=== PATIENT | male | born 1995 | race Caucasian/White ===

== ENCOUNTER 2018-09-07 16:14 | Emergency (ER) | payer OTHER, SELFPAY ==
[2018-09-07 16:17] VITALS: BP 174/91; PULSE 88; RESP 16; TEMP 37.9; O2SAT 96; BMI 34.7
--- NOTE | 2018-09-07 16:24 | ED.WOUNDLAC ---
HPI - Wound/Laceration <KATRINA Stark - Last Filed: 09/07/18 22:26> General Chief Complaint: Wound/Laceration Stated Complaint: laceratoin to left hand Time Seen by Provider: 09/07/18 16:24 Source: patient Mode of arrival: ambulatory Limitations: no limitations History of Present Illness HPI narrative: 22-year-old healthy male that is a nonsmoker here for complaint of laceration to his left palm that happened earlier this afternoon. He states that he was willing when he accidentally slipped with the knife causing a laceration to his left palm. He denies any other injuries. He states the knife was mostly clean. He states that his tetanus is up-to-date. No other concerns or complaints at this timeframe. Related Data Allergies Allergy/AdvReac Type Severity Reaction Status Date / Time No Known Drug Allergies Allergy Verified 09/07/18 16:20 Review of Systems <KATRINA Stark - Last Filed: 09/07/18 22:26> Constitutional Denies chills, Denies fever(s), Denies lethargy and Denies weakness Eyes Denies change in vision, Denies eye discharge, Denies irritation and Denies loss of vision ENT Ears, Nose, Mouth, and Throat: Denies change in voice, Denies neck pain and Denies sore throat Cardiovascular Denies chest pain, Denies irregular heart rhythm, Denies lightheadedness, Denies palpitations, Denies dyspnea, Denies dyspnea on exertion and Denies orthopnea Respiratory Denies cough, Denies dyspnea, Denies dyspnea on exertion and Denies wheezing Gastrointestinal Gastrointestinal: Denies abdominal pain, Denies change in bowel habits, Denies diarrhea, Denies nausea and Denies vomiting Genitourinary Denies hematuria, Denies flank pain, Denies urinary incontinence and Denies urinary urgency Musculoskeletal Denies neck pain Comments: Laceration left palm Integumentary/Breasts Denies pruritus, Denies erythema, Denies rash and Denies wounds Neurologic Denies confusion, Denies loss of vision and Denies weakness Psychiatric Denies anxiety, Denies confusion, Denies depression, Denies homicidal ideation and Denies suicidal ideation Endocrine Denies palpitations Hematologic/Lymphatic Denies easy bruising Allergic/Immunologic Denies wheezing Exam <KATRINA Stark - Last Filed: 09/07/18 22:26> Initial Vital Signs Initial Vital Signs: Vital Signs Temperature 100.2 F H 09/07/18 16:17 Pulse Rate 88 09/07/18 16:17 Respiratory Rate 16 09/07/18 16:17 Blood Pressure 174/91 H 09/07/18 16:17 Pulse Oximetry 96 09/07/18 16:17 Const General: cooperative and well developed Nutritional Appearance: well nourished Orientation: alert, awake, oriented x3 and not confused HENNV Mouth: oral mucosae normal and moist mucous membranes Eyes Conjunctivae: conjunctivae normal Sclera: sclerae normal Pupils: PERRL EOM: EOM intact bilaterally Resp Effort & Inspection: normal respiratory effort, able to speak in complete sentences, no respiratory distress and no use of accessory muscles Auscultation: clear to auscultation bilaterally, no rales, no rhonchi and no wheezes Cardio Rate: regular rate Rhythm: regular rhythm Heart Sounds: no click, no gallops, no murmurs and no rubs Pulses: normal peripheral pulses Skin General: no rashes or lesions noted, No jaundice and No petechiae Neuro General: alert, oriented x3, gait normal and no focal motor deficits Speech: speech normal Extrem Other: 2 cm laceration to the proximal left palm area. Distal sensation is intact. Distal cap refill less than 2 sec. Full range of motion. <Arabella Donato DO - Last Filed: 09/08/18 07:33> Initial Vital Signs Initial Vital Signs: Vital Signs Temperature 100.2 F H 09/07/18 16:17 Pulse Rate 88 09/07/18 16:17 Respiratory Rate 16 09/07/18 16:17 Blood Pressure 174/91 H 09/07/18 16:17 Pulse Oximetry 96 09/07/18 16:17 Procedures <KATRINA Stark - Last Filed: 09/07/18 22:26> Laceration Repair Laceration 1: Site: hand Side (If applicable): left Size (cm): 2 Description: linear Depth: simple, single layer Local Anesthetic: lidocaine 1% Amount of anesthesia used (mL): 2 Pre-repair: wound explored and irrigated extensively Skin layer closed with: nylon Size (cm): 5-0 Number of sutures: 5 Technique: simple, interrupted Course <KATRINA Stark - Last Filed: 09/07/18 22:26> Orders Ordered: ED Orders 09/07/18 16:29 XR hand LT min 3V Stat Vital Signs - 8 hr 09/07/18 16:17 09/07/18 17:45 Temperature 100.2 F H 98.8 F Pulse Rate 88 83 Respiratory Rate 16 16 Blood Pressure 174/91 H Blood Pressure [Right Arm] 133/82 Pulse Oximetry 96 98 <Arabella Donato DO - Last Filed: 09/08/18 07:33> Orders Ordered: ED Orders 09/07/18 16:29 XR hand LT min 3V Stat Vital Signs - 8 hr 09/07/18 16:17 09/07/18 17:45 Temperature 100.2 F H 98.8 F Pulse Rate 88 83 Respiratory Rate 16 16 Blood Pressure 174/91 H Blood Pressure [Right Arm] 133/82 Pulse Oximetry 96 98 MDM - Wound/Laceration <KATRINA Stark - Last Filed: 09/07/18 22:26> Imaging Data Left hand : Radiologist's impression: [address] [address] XRay Report Signed Patient: Alan Chen CMR#: [id number] : 1995Acct:[id number] Age/Sex: te of Service: 09/07/18 Loc: ED Accession Number: [id number] Procedure: XR hand LT min 3V Ordering Provider: Mathew Paul PROCEDURE: XR HAND LT MIN 3V INDICATIONS: laceration to left palm with whittling knife TECHNIQUE: 3 views of the hand(s) acquired. COMPARISON: None. FINDINGS: Bones: No fractures or dislocations. Carpal bones are normally aligned. No suspicious bony lesions. Soft tissues: No suspicious soft tissue calcifications. IMPRESSION: No acute left hand fracture or dislocation. No radiopaque foreign body is seen. Dictated by: Kyle Adams M.D. on 09/07/2018 at 17:00 Approved by: Kyle Adams M.D. on 09/07/2018 at 17:01 [facility] Narrative Medical decision making narrative: X-ray of the left hand was obtained was negative for any fractures or foreign bodies. Laceration to palm of left hand was closed with 5 sutures. Sutures to be removed in 7-10 days. Wound dressed with bacitracin and a dressing. [id number] Tylenol or Motrin as needed for any discomfort. Follow up with her primary care provider. For any worsening symptoms or signs of infection return to the emergency room. Keep initial dressing on clean and dry for 24-36 hr. After the 24-36 hr may shower briefly dry wound afterwards redressed with bacitracin dressing. No swimming or immersion of the hand until healed. Discharge Plan Departure Patient Disposition: Home Clinical Impression: Laceration of hand, left Discharge Date/Time: 09/07/18 18:02 Interventions: ED Discharge Assessment Last Done: 09/07/18 18:01 Instructions: DI for Laceration Repair Activity Restrictions/Additional Instructions: X-ray of the left hand was obtained was negative for any fractures or foreign bodies. Laceration to palm of left hand was closed with 5 sutures. Sutures to be removed in 7-10 days. Ojvr-vzy-cjkhidv Tylenol or Motrin as needed for any discomfort. Follow up with her primary care provider. For any worsening symptoms or signs of infection return to the emergency room. Keep initial dressing on clean and dry for 24-36 hr. After the 24-36 hr may shower briefly dry wound afterwards redressed with bacitracin dressing. No swimming or immersion of the hand until healed. Referrals: [facility] [Provider Group] <Arabella Donato, - Last Filed: 09/08/18 07:33> Cosign ED Attending Hedy Attestation: I was immediately available in the department for consultation. Documentation has been reviewed. I agree with assessment and plan.
--- NOTE | 2018-09-07 16:29 | DI.RAD.S_ITS ---
PROCEDURE: XR HAND LT MIN 3V INDICATIONS: laceration to left palm with whittling knife TECHNIQUE: 3 views of the hand(s) acquired. COMPARISON: None. FINDINGS: Bones: No fractures or dislocations. Carpal bones are normally aligned. No suspicious bony lesions. Soft tissues: No suspicious soft tissue calcifications. IMPRESSION: No acute left hand fracture or dislocation. No radiopaque foreign body is seen. Dictated by: Kyle Adams M.D. on 09/07/2018 at 17:00 Approved by: Kyle Adams M.D. on 09/07/2018 at 17:01
--- NOTE | 2018-09-07 17:40 | ED_ITS ---
HPI - Wound/Laceration <KATRINA Stark - Last Filed: 09/07/18 22:26> General Chief Complaint: Wound/Laceration Stated Complaint: laceratoin to left hand Time Seen by Provider: 09/07/18 16:24 Source: patient Mode of arrival: ambulatory Limitations: no limitations History of Present Illness HPI narrative: 22-year-old healthy male that is a nonsmoker here for complaint of laceration to his left palm that happened earlier this afternoon. He states that he was willing when he accidentally slipped with the knife causing a laceration to his left palm. He denies any other injuries. He states the knife was mostly clean. He states that his tetanus is up-to-date. No other concerns or complaints at this timeframe. Related Data Allergies Allergy/AdvReac Type Severity Reaction Status Date / Time No Known Drug Allergies Allergy Verified 09/07/18 16:20 Review of Systems <KATRINA Stark - Last Filed: 09/07/18 22:26> Constitutional Denies chills, Denies fever(s), Denies lethargy and Denies weakness Eyes Denies change in vision, Denies eye discharge, Denies irritation and Denies loss of vision ENT Ears, Nose, Mouth, and Throat: Denies change in voice, Denies neck pain and Denies sore throat Cardiovascular Denies chest pain, Denies irregular heart rhythm, Denies lightheadedness, Denies palpitations, Denies dyspnea, Denies dyspnea on exertion and Denies orthopnea Respiratory Denies cough, Denies dyspnea, Denies dyspnea on exertion and Denies wheezing Gastrointestinal Gastrointestinal: Denies abdominal pain, Denies change in bowel habits, Denies diarrhea, Denies nausea and Denies vomiting Genitourinary Denies hematuria, Denies flank pain, Denies urinary incontinence and Denies urinary urgency Musculoskeletal Denies neck pain Comments: Laceration left palm Integumentary/Breasts Denies pruritus, Denies erythema, Denies rash and Denies wounds Neurologic Denies confusion, Denies loss of vision and Denies weakness Psychiatric Denies anxiety, Denies confusion, Denies depression, Denies homicidal ideation and Denies suicidal ideation Endocrine Denies palpitations Hematologic/Lymphatic Denies easy bruising Allergic/Immunologic Denies wheezing Exam <KATRINA Stark - Last Filed: 09/07/18 22:26> Initial Vital Signs Initial Vital Signs: Vital Signs Temperature 100.2 F H 09/07/18 16:17 Pulse Rate 88 09/07/18 16:17 Respiratory Rate 16 09/07/18 16:17 Blood Pressure 174/91 H 09/07/18 16:17 Pulse Oximetry 96 09/07/18 16:17 Const General: cooperative and well developed Nutritional Appearance: well nourished Orientation: alert, awake, oriented x3 and not confused HENNJ Mouth: oral mucosae normal and moist mucous membranes Eyes Conjunctivae: conjunctivae normal Sclera: sclerae normal Pupils: PERRL EOM: EOM intact bilaterally Resp Effort & Inspection: normal respiratory effort, able to speak in complete sentences, no respiratory distress and no use of accessory muscles Auscultation: clear to auscultation bilaterally, no rales, no rhonchi and no wheezes Cardio Rate: regular rate Rhythm: regular rhythm Heart Sounds: no click, no gallops, no murmurs and no rubs Pulses: normal peripheral pulses Skin General: no rashes or lesions noted, No jaundice and No petechiae Neuro General: alert, oriented x3, gait normal and no focal motor deficits Speech: speech normal Extrem Other: 2 cm laceration to the proximal left palm area. Distal sensation is intact. Distal cap refill less than 2 sec. Full range of motion. <Arabella Donato DO - Last Filed: 09/08/18 07:33> Initial Vital Signs Initial Vital Signs: Vital Signs Temperature 100.2 F H 09/07/18 16:17 Pulse Rate 88 09/07/18 16:17 Respiratory Rate 16 09/07/18 16:17 Blood Pressure 174/91 H 09/07/18 16:17 Pulse Oximetry 96 09/07/18 16:17 Procedures <KATRINA Stark - Last Filed: 09/07/18 22:26> Laceration Repair Laceration 1: Site: hand Side (If applicable): left Size (cm): 2 Description: linear Depth: simple, single layer Local Anesthetic: lidocaine 1% Amount of anesthesia used (mL): 2 Pre-repair: wound explored and irrigated extensively Skin layer closed with: nylon Size (cm): 5-0 Number of sutures: 5 Technique: simple, interrupted Course <KATRINA Stark - Last Filed: 09/07/18 22:26> Orders Ordered: ED Orders 09/07/18 16:29 XR hand LT min 3V Stat Vital Signs - 8 hr 09/07/18 16:17 09/07/18 17:45 Temperature 100.2 F H 98.8 F Pulse Rate 88 83 Respiratory Rate 16 16 Blood Pressure 174/91 H Blood Pressure [Right Arm] 133/82 Pulse Oximetry 96 98 <Arabella Donato DO - Last Filed: 09/08/18 07:33> Orders Ordered: ED Orders 09/07/18 16:29 XR hand LT min 3V Stat Vital Signs - 8 hr 09/07/18 16:17 09/07/18 17:45 Temperature 100.2 F H 98.8 F Pulse Rate 88 83 Respiratory Rate 16 16 Blood Pressure 174/91 H Blood Pressure [Right Arm] 133/82 Pulse Oximetry 96 98 MDM - Wound/Laceration <KATRINA Stark - Last Filed: 09/07/18 22:26> Imaging Data Left hand : Radiologist's impression: [address] [address] XRay Report Signed Patient: Alan Chen CMR#: [id number] : 1995Acct:[id number] Age/Sex: te of Service: 09/07/18 Loc: ED Accession Number: [id number] Procedure: XR hand LT min 3V Ordering Provider: Mathew Paul PROCEDURE: XR HAND LT MIN 3V INDICATIONS: laceration to left palm with whittling knife TECHNIQUE: 3 views of the hand(s) acquired. COMPARISON: None. FINDINGS: Bones: No fractures or dislocations. Carpal bones are normally aligned. No suspicious bony lesions. Soft tissues: No suspicious soft tissue calcifications. IMPRESSION: No acute left hand fracture or dislocation. No radiopaque foreign body is seen. Dictated by: Kyle Adams M.D. on 09/07/2018 at 17:00 Approved by: Kyle Adams M.D. on 09/07/2018 at 17:01 [facility] Narrative Medical decision making narrative: X-ray of the left hand was obtained was negative for any fractures or foreign bodies. Laceration to palm of left hand was closed with 5 sutures. Sutures to be removed in 7-10 days. Wound dressed with bacitracin and a dressing. Qlsu-xbw-aobwplo Tylenol or Motrin as needed for any discomfort. Follow up with her primary care provider. For any worsening symptoms or signs of infection return to the emergency room. Keep initial dressing on clean and dry for 24-36 hr. After the 24-36 hr may shower briefly dry wound afterwards redressed with bacitracin dressing. No swimming or immersion of the hand until healed. Discharge Plan Departure Patient Disposition: Home Clinical Impression: Laceration of hand, left Discharge Date/Time: 09/07/18 18:02 Interventions: ED Discharge Assessment Last Done: 09/07/18 18:01 Instructions: DI for Laceration Repair Activity Restrictions/Additional Instructions: X-ray of the left hand was obtained was negative for any fractures or foreign bodies. Laceration to palm of left hand was closed with 5 sutures. Sutures to be removed in 7-10 days. [id number] Tylenol or Motrin as needed for any discomfort. Follow up with her primary care provider. For any worsening symptoms or signs of infection return to the emergency room. Keep initial dressing on clean and dry for 24-36 hr. After the 24-36 hr may shower briefly dry wound afterwards redressed with bacitracin dressing. No swimming or immersion of the hand until healed. Referrals: [facility] [Provider Group] <Arabella Donato, - Last Filed: 09/08/18 07:33> Cosign ED Attending Hedy Attestation: I was immediately available in the department for consultation. Documentation has been reviewed. I agree with assessment and plan.
[2018-09-07 17:45] VITALS: BP 133/82; PULSE 83; RESP 16; TEMP 37.1; O2SAT 98
--- NOTE | 2018-09-07 18:00 | PC.NURSE ---
Pt laceration in left hand dressed with bacitracin telfa and gauze wrap per provider.
== END 2018-09-07 18:02 | disposition home or self-care (01) ==
PROVIDERS: Emergency Provider Nurse Practitioner Family
DX: S61.412A Laceration without foreign body of left hand, initial encounter (principal); W26.0XXA Contact with knife, initial encounter
CPT/HCPCS: 12001; 12002; 73130; 99283